=== PATIENT | male | born 2000 | race Caucasian/White ===

== ENCOUNTER 2019-04-27 12:42 | Emergency (ER) | payer OTHER ==
[~2019-04-27] VITALS: Ht 182.9 cm; Wt 94.4 kg
[2019-04-27 12:42] VITALS: BP 129/79
--- NOTE | 2019-04-27 12:53 | NUR ---
Patient ambulated to bed 1 with family. RN evaluating patient at bedside.
--- NOTE | 2019-04-27 12:59 | NUR ---
C/O "WANTS TO BE EVAL FOR POSIBLE EXPOSURE TO STD/HVI AND TAKING MUSHROOMS, SMOKED POT 2 DAYS AGO. PAIN 0/10 HX-[facility]
[2019-04-27] MEDS ORDERED: PRON INH (13:11)
--- NOTE | 2019-04-27 13:23 | NUR ---
Ordered Telepsychiatry consultation as requested by Dr. Mason.
--- NOTE | 2019-04-27 13:38 | NUR ---
ua sent to lab
--- NOTE | 2019-04-27 15:10 | NUR ---
REGULAR DIET TRAY PROVIDED TO PT.
--- NOTE | 2019-04-27 15:39 | NUR ---
Spoke with Dr. Chaidez; provided pt's healthcare information for telepsych.
--- NOTE | 2019-04-27 15:40 | NUR ---
Telepsych evaluation taking place at this time by Dr. Chaidez.
[2019-04-27] MEDS ORDERED: OLANZapine 5 MG TAB PO STA (16:23)
--- NOTE | 2019-04-27 16:55 | NUR ---
Patient discharged with v/s stable. Written and verbal after care instructions given and explained. Patient alert, oriented and verbalized understanding of instructions. Ambulatory with steady gait. All questions addressed prior to discharge. ID band removed. Patient advised to follow up with PMD. Rx of ZYPREXA given. Patient educated on indication of medication including possible reaction and side effects. Opportunity to ask questions provided and answered.
[2019-04-27 16:56] VITALS: BP 120/62
[2019-04-29 06:07] LABS: CHLAMYDIA TRACHOMATIS AMP DNA Negative (Negative)
== END 2019-04-27 16:55 | disposition home or self-care (01) ==
LOC: MED 12:42
DX: F41.9 Anxiety disorder, unspecified (principal); F12.90 Cannabis use, unspecified, uncomplicated; F15.90 Other stimulant use, unspecified, uncomplicated; Z20.6 Contact with and (suspected) exposure to human immunodeficiency virus [HIV]; Z79.899 Other long term (current) drug therapy
CPT/HCPCS: 36415; 87491; 99283